=== PATIENT | female | born 1980 | race Two or more races ===

== ENCOUNTER → 2019-03-21 | Outpatient (CLI) | payer MEDICAID ==
--- NOTE | 2019-03-21 15:44 | RAD ---
EXAM: OBSTETRIC ULTRASOUND, <14 WEEKS. HISTORY: Vaginal bleeding in . COMPARISON: None. FINDINGS: Sonographic evaluation of the pelvis was performed transabdominally and transvaginally. The uterus is retroflexed and measures 13.5 x 5.4 x 7.1 cm. Single intrauterine gestation measures 8 weeks 5 days based on crown-rump length 2.1 cm. There is no heart motion consistent with demise. The gestational sac is regular. A subchorionic hematoma measures 3.1 x 1.1 cm. Neither ovary is visualized currently. There is no significant free fluid. IMPRESSION: 1. Findings consistent with demise. Ongoing follow-up is recommended. Electronically signed by: Domingo Galdamez MD (03/21/2019 3:41 PM) [facility]
== END | disposition home or self-care (01) ==
LOC: US 13:51
PROVIDERS: ATTEND Obstetrics & Gynecology
DX: O46.8X1 Other antepartum hemorrhage, first trimester (principal); Z3A.08 8 weeks gestation of pregnancy
CPT/HCPCS: 76801; 76817